=== PATIENT | female | born 1955 | race Caucasian/White ===

== ENCOUNTER → 2016-03-21 | Outpatient (CLI) | payer OTHER ==
[~2016-03-21] MED LIST: AMR2 PO; ASPI81TA28 PO; CALC667C4 PO; CLOP1TAB15 PO; CLR10 PO; CYAN100020 PO; DIPH-437 PO; ERGO500037 PO; GLIM4TAB2 PO; HMLI SC; HMLI7525 SC; HYDR-4715 PO; INSDGI SC; LORA-741 PO; LPR100 PO; MULT-650 PO; ROPI0.25 PO; ROPI1TAB PO; VTMD PO
[2016-03-21 20:35] LABS: INFLUENZA A PCR Neg for Influ A (NEG); INFLUENZA B PCR Neg for Influ B (NEG)
== END | disposition home or self-care (01) ==
LOC: C.LABBFT 16:33
PROVIDERS: ATTEND Internal Medicine
DX: R05 Cough (principal)

== ENCOUNTER → 2017-04-16 | Outpatient (CLI) | payer OTHER ==
[~2017-04-16] MED LIST changes: -AMR2 PO; -HMLI SC; -INSDGI SC; -ROPI1TAB PO; -VTMD PO
[2017-04-16 13:22] LABS: HEMOGLOBIN A1C 7.1 % (4.5-5.6)
== END | disposition home or self-care (01) ==
LOC: C.LABBFT 10:59
PROVIDERS: ATTEND Physician Assistant Medical
DX: R50.9 Fever, unspecified (principal); E11.29 Type 2 diabetes mellitus with other diabetic kidney complication; I10 Essential (primary) hypertension

== ENCOUNTER → 2017-06-05 | Outpatient (CLI) | payer OTHER ==
--- NOTE | 2017-06-05 11:55 | DIAGNOSTIC IMAGING REPORT ---
TWO VIEW CHEST CLINICAL HISTORY: Community-acquired pneumonia. FINDINGS: PA and lateral chest radiographs are compared to study dated 11/23/2016. A left internal jugular central venous catheter is new from previous. The heart is enlarged and there is atherosclerotic calcification of the thoracic aorta. There is pulmonary vascular congestion. There are hazy bilateral airspace opacities, greatest in the lower lobes. No pleural effusion or pneumothorax is seen. The skeletal structures are osteopenic. Degenerative change is present throughout the thoracic spine. Cholecystectomy clips are noted. A stent is noted in the left upper extremity. IMPRESSION: 1. Cardiomegaly with evidence of congestive failure. 2. Hazy opacities are present in the mid to lower lungs. This could represent a component of interstitial edema and/or an infectious/inflammatory pneumonitis. Clinical correlation will be required and radiographic follow-up to resolution is recommended Electronically signed by: Ayush London M.D. 06/05/2017 11:54 AM Dictated Date/Time: 06/05/2017 11:51 AM
== END | disposition home or self-care (01) ==
LOC: C.RADBC 11:39
PROVIDERS: ATTEND Nurse Practitioner
DX: J18.9 Pneumonia, unspecified organism (principal); I51.7 Cardiomegaly